=== PATIENT | male | born 1950 | race Caucasian/White ===

== ENCOUNTER 2018-01-25 08:14 | Outpatient (CLI) | payer MEDICARE, BC ==
[~2018-01-25] VITALS: Ht 175.3 cm; Wt 102.3 kg
--- NOTE | ~2018-01-25 | HEMODYNAMI ---
PATIENT:JANIE ZHOU MEDICAL RECORD: [id number] : 50 LOCATION:[facility] ADMISSION DATE: 01/25/18 Generatedon:01/25/201811:39 Patient name: JANIE ZHOU Patient #: [id number] SSN: D OB: 1950 Date of study: 01/25/2018 Page: Of Hemodynamic Procedure Report Patient Data Patient Demographics Procedure consent was obtained First Name: JANIE Gender: Male Last Name: ABELARDO : 1950 Patient #: [id number] Age: 67 year(s) Race: Unknown Additional ID: [id number] Contact details [address]: [address] [place] [address] State: [place] City: [place] Zip code: [address] Past Medical History Allergies Allergen Reaction Date Comments Reported Other allergy 01/25/2018 Plavix, Statins, Lipitor Admission Admission Data Admission Date: 01/25/2018 Admission Time: 8:14 Admit Source: Other Lab Results Lab Result Date: 01/25/2018 Lab Result Time: 9:00 Biochemistry Name Units Result Min Max BUN mg/dl 16 --(---*)-- 7 18 Creatinine mg/dl 1.3 --(---*)-- 0.6 1.3 CBC Name Units Result Min Max Hematocrit % 47.6 --(-*--)-- 42 54 Hemoglobin g/dl 17.4 --(---*)-- 13.5 17.5 Procedure Procedure Types Cath Procedure Diagnostic Procedure LHC LHC w/Coronaries w/Grafts Sedation Charges Moderate Sedation up to 15 minutes PCI Procedure Coronary Stent Coronary Stent Initial Procedure Description Procedure Date Procedure Date: 01/25/2018 Procedure Start Time: 11:18 Procedure End Time: 11:38 Procedure Staff Name Function Isiah Morton MD Performing Physician Juan Tijerina RT Monitor Manolo Allen RT Scrub Osvaldo Deleon RN Nurse Procedure Data Cath Procedure Fluoroscopy Diagnostic fluoroscopy Total fluoroscopy Time: 5 time: 5 min min Diagnostic fluoroscopy Total fluoroscopy dose: dose: 567.1 mGy 567.1 mGy Contrast Material Contrast Material Type Amount (ml) Isovue 370 129 Entry Location Entry Primary Successful Side Size Upsize Upsize Entry Closure Succes sful Closure Location (Fr) 1 (Fr) 2 (Fr) Remarks Device Remarks Femoral Right 5 Fr 6 Fr Exoseal artery Short Estimated blood loss: 10 ml Diagnostic catheters Device Type Used For End Catheter Placement MULTIPACK JL 4.0 5Fr Procedure catheter MULTIPACK Pigtail 5 Fr Procedure catheter MULTIPACK 3DRC 5Fr Procedure catheter DIAGNOSTIC AR 2 MOD 5 Fr Procedure catheter ([id number]) Procedure Complications No complications Procedure Medications Medication Administration Route Dosage Oxygen etCO2 Nasal cannula 2 l/min Heparin Flush Bag added to field 2 bags (1000units/500ml NS) 0.9% NaCl I.V. 100 ml/hr Fentanyl I.V. 50 mcg Versed I.V. 1 mg Fentanyl I.V. 50 mcg Versed I.V. 1 mg Fentanyl I.V. 50 mcg Versed I.V. 1 mg Fentanyl I.V. 50 mcg Versed I.V. 1 mg Fentanyl I.V. 50 mcg Heparin Bolus I.V. 4000 units Fentanyl I.V. 50 mcg Hemodynamics Rest HGB: 17.4 (g/dl) Heart Rate: 66 (bpm) Pressure Samples Time Site Value (mmHg) Purpose Heart Use Rate(bpm) 11:21 LV 75/8,12 Snapshot 77 11:21 LV 113/-22,13 Snapshot 77 Snapshots Pre Cath Intra NCS Post Cath Vital Signs Time Heart Resp SPO2 etCO2 NIBP (mmHg) Rhythm Pain Sedation Rate (ipm) (%) (mmHg) Status Level (bpm) 10:48:51 71 17 98 0 153/89(126) NSR 0 (11) 10(A) , No pain 10:53:11 65 17 97 32.3 133/76(112) NSR 0 (11) 10(A) , No pain 10:57:29 69 17 94 21 143/90(107) NSR 0 (11) 10(A) , No pain 11:01:53 67 17 96 27 140/81(113) NSR 0 (11) 10(A) , No pain 11:06:19 73 16 98 30.1 159/79(123) NSR 0 (11) 10(A) , No pain 11:10:50 74 17 94 24 135/67(112) NSR 0 (11) 10(A) , No pain 11:15:08 68 16 95 9 124/87(100) NSR 0 (11) 10(A) , No pain 11:19:24 63 17 95 32.3 132/81(113) NSR 0 (11) 9(A) , No pain 11:24:41 77 17 92 36.8 143/84(126) NSR 0 (11) 9(A) , No pain 11:29:02 78 16 92 23.3 163/94(126) NSR 0 (11) 9(A) , No pain 11:33:34 82 16 94 39.1 161/91(138) NSR 0 (11) 9(A) , No pain 11:36:16 83 17 94 25.5 154/95(129) NSR 0 (11) 9(A) , No pain Medications Time Medication Route Dose Verified Delivered Reason Notes Effectiveness by by 10:47:58 Oxygen etCO2 2 Isiah Osvaldo Per physician Nasal l/min Praveen Deleon RN cannula 10:48:06 Heparin Flush added 2 Isiah Osvaldo used for Bag to bags Praveen Deleon RN procedure (1000units/500ml field NS) 10:48:16 0.9% NaCl I.V. 100 Isiah Osvaldo Per physician ml/hr Praveen Deleon RN 11:12:31 Fentanyl I.V. 50 Isiah Osvaldo for sedation mcg Praveen Deleon RN 11:12:38 Versed I.V. 1 mg Isiah Osvaldo for sedation Praveen Deleon RN 11:15:34 Fentanyl I.V. 50 Isiah Osvaldo for sedation mcg Praveen Deleon RN 11:15:39 Versed I.V. 1 mg Isiah Osvaldo for sedation Prvaeen Deleon RN 11:19:16 Fentanyl I.V. 50 Isiah Osvaldo for sedation mcg Praveen Deleon RN 11:19:19 Versed I.V. 1 mg Isiah Osvaldo for sedation Praveen Deleon RN 11:22:37 Fentanyl I.V. 50 Isiah Osvaldo for sedation mcg Praveen Deleon RN 11:22:40 Versed I.V. 1 mg Isiah Osvaldo for sedation Praveen Deleon RN 11:25:42 Fentanyl I.V. 50 Isiah Riley for sedation mcg Praveen Deleon RN 11:29:03 Heparin Bolus I.V. 4000 Isiah Riley for units Praveen Deleon RN anticoagulation 11:31:01 Fentanyl I.V. 50 Isiah Riley for sedation mcg Praveen Deleon RN Procedure Log Time Note 10:18:24 Informed consent obtained and on chart 10:18:45 Admit Source: Other 10:18:46 Diagnostic Cath status Elective 10:18:48 Time tracking: Regular hours (M-F 7:00 - 5:00) 10:18:52 Plan of Care:Hemodynamics will remain stable., Cardiac rhythm will remain stable., Comfort level will be maintained., Respiratory function will remain adequate., Patient/ family verbilizes understanding of procedure., Procedure tolerated without complication., Recovers from procedure without complications.. 10:20:27 Manolo SALINAS(R) sent for patient. Start room use. 10:38:17 Patient received from Pre/Post Procedure Room to [facility] 3 Alert and oriented. Tansferred to table in Supine position. 10:38:18 Warm blankets applied, and susu hugger turned on for patient comfort. 10:38:19 Correct patient and procedure confirmed by team. 10:38:19 ECG and BP/O2 sat monitors applied to patient. 10:38:35 H&P Date Dictated: 01/25/2018 Within 30 days and on chart.. 10:47:30 Vital chart was started 10:47:58 Oxygen 2 l/min etCO2 Nasal cannula was administered by Osvaldo Deleon RN; Per physician; 10:48:06 Heparin Flush Bag (1000units/500ml NS) 2 bags added to field was administered by Osvaldo Deleon RN; used for procedure; 10:48:16 0.9% NaCl 100 ml/hr I.V. was administered by Osvaldo Deleon RN; Per physician; 10:54:36 Baseline sample Acquired. 10:54:40 Rhythm: sinus rhythm 10:55:53 Full Disclosure recording started 10:55:54 Pre-procedure instructions explained to patient. 10:55:54 Pre-op teaching completed and patient verbalized understanding. 10:55:56 Family in waiting room. 10:55:58 Patient NPO since Midnight. 10:56:14 Patient allergic to Other allergyPlavix, Statins, Lipitor 10:56:16 Is the patient allergic to Iodine/contrast media? No. 10:56:17 Is patient on blood thinner?Yes 10:56:20 ACC The patient was administered the following blood thiners within the last 24 hours: ACCEffient 10:56:23 Patient diabetic? No. 10:56:25 Previous problem with sedation/anesthesia? No ? 10:56:26 Snore? Yes 10:56:27 Sleep apnea? No 10:56:27 Deviated septum? No 10:56:28 Opens mouth fully? Yes 10:56:29 Sticks out tongue? Yes 10:56:30 Airway obstruction? No ? 10:56:31 Dentures? No ? 10:56:33 Pre procedure: right dorsailis pedis pulse 2+ Normal; easily identifiable; not easily obliterated 10:56:36 Patient pain scale 0/10 ?. 10:56:42 IV patent on arrival in left forearm with 0.9% NaCl at [facility]. 10:57:22 Lab Result : BUN 16 mg/dl 10:57:22 Lab Result : Creatinine 1.3 mg/dl 10:57:22 Lab Result : Hemoglobin 17.4 g/dl 10:57:22 Lab Result : Hematocrit 47.6 % 10:57:25 Lab results completed and on chart. 10:57:30 Right groin area was prepped with chlora-prep and draped in sterile fashion 10:57:31 Alarms reviewed by R. N. 10:57:31 Sharps counted by scrub and verified by R.N. 10:57:34 Use device set Femoral Dx 10:57:35 ACIST Syringe (24374) opened to sterile field. 10:57:35 Bag Decanter (2002) opened to sterile field. 10:57:36 Medline Cath Pack ([id number]) opened to sterile field. 10:57:37 ACIST Hand Control (48695) opened to sterile field. 10:57:38 ACIST Manifold (17654) opened to sterile field. 10:57:39 Tegaderm 4 x 4 (1626W) opened to sterile field. 10:57:40 SHEATH Prelude 5Fr 0.035 (OFX-2N-52-035) opened to sterile field. 10:57:42 DIAGNOSTIC WIRE .035 260cm J wire (736342) opened to sterile field. 10:57:42 DIAGNOSTIC Multipack 5Fr catheter set (BF7019) opened to sterile field. 11:12:14 Zero performed for pressure channel P1 11:12:23 Physician arrived 11::24 --------ALL STOP TIME OUT------ ::24 Final Timeout: patient, procedure, and site verified with staff and physician. All members of the team are in agreement. 11:12:26 Right groin site verified by team. 11:12:28 Physical assessment completed. ASA score P 2 - A patient with mild systemic disease as per Isiah Morton MD. 11:12:31 Fentanyl 50 mcg I.V. was administered by Osvaldo Deleon RN; for sedation; 11:12:31 Sedation plan: IV Moderate Sedation Medication:Versed, Fentanyl 11:12:38 Versed 1 mg I.V. was administered by Osvaldo Deleon RN; for sedation; 11:15:34 Fentanyl 50 mcg I.V. was administered by Osvaldo Deleon RN; for sedation; 11:15:39 Versed 1 mg I.V. was administered by Osvaldo Deleon RN; for sedation; 11:18:25 Procedure started. 11:18:29 Local anesthetic to right femoral artery with Lidocaine 2% by Isiah Morton MD.INITIAL ACCESS ONLY 11:18:36 A 5 Fr sheath was inserted into the Right Femoral artery 11:19:16 Fentanyl 50 mcg I.V. was administered by Osvaldo Deleon RN; for sedation; 11:19:19 Versed 1 mg I.V. was administered by Osvaldo Deleon RN; for sedation; 11:19:44 A MULTIPACK JL 4.0 5Fr catheter was advanced over the wire and used for Procedure. 11:19:53 LCA angiography performed. 11:21:09 SHEATH Prelude 6Fr 0.035 (NPM-8Q-60-035) opened to sterile field. 11:21:09 CHOICE PT Extra Support 182cm wire ([id number]) opened to sterile field. 11:21:10 INFLATOR Merit BasixCompak (OS8846) opened to sterile field. 11:21:12 Catheter exchanged over wire. 11:21:15 A MULTIPACK Pigtail 5 Fr catheter was advanced over the wire and used for Procedure. 11:22:02 LV gram done using CEBALLOS 11::05 Injector settings: Ml/sec: 10, Volume: 20, 11:22:06 LV hemodynamics recorded. 11:22:11 EF : 50 % 11:22:12 Catheter exchanged over wire. 11:22:17 A MULTIPACK 3DRC 5Fr catheter was advanced over the wire and used for Procedure. 11::37 Fentanyl 50 mcg I.V. was administered by Osvaldo Deleon RN; for sedation; 11::40 Versed 1 mg I.V. was administered by Osvaldo Deleon RN; for sedation; 11::01 HIDALGO to Diag angiography performed. 11:23:24 RCA angiography performed. 11::42 SVG to LAD angiography performed. 11::57 Catheter exchanged over wire. 11:24:02 A DIAGNOSTIC AR 2 MOD 5 Fr catheter ([id number]) was advanced over the wire and used for Procedure. 11:25:06 SVG to RCA angiography performed. 11::42 Fentanyl 50 mcg I.V. was administered by Osvaldo Deleon RN; for sedation; 11::13 Catheter removed. 11:26:21 Sheath upsized to a 6 Fr Short. 11:26:49 GUIDE 6FR XB 4.0 SH catheter ([id number]) opened to sterile field. 11:26:56 6 Fr xb 4 sh guide catheter was inserted over the wire 11::03 Heparin Bolus 4000 units I.V. was administered by Osvaldo Deleon RN; for anticoagulation; 11::31 Guide Catheter removed. unable to cannulate vessel. 11:29:36 GUIDE 6FR XB 3.5 SH catheter ([id number]) opened to sterile field. 11:29:51 choice pt es wire advanced. 11::53 Wire advanced across lesion. 11:: Fentanyl 50 mcg I.V. was administered by Osvaldo Deleon RN; for sedation; 11:31:03 Place stent Inflation Number: 1 A MARISEL RX 3.0 x 12 stent ([id number]) was prepped and advanced across the Dist CX. The stent was deployed at 11 NADIA for 0:10 (min:sec). 11:32:04 Stent catheter was removed intact over wire. 11:32:33 Place stent Inflation Number: 1 A MARISEL RX 3.0 x 18 stent ([id number]) was prepped and advanced across the Mid CX. The stent was deployed at 15 NADIA for 0:10 (min:sec). 11:32:46 EXOSEAL 6Fr (EX600) opened to sterile field. 11:33:15 Stent catheter was removed intact over wire. 11:33:15 Wire removed. 11:33:16 Guide catheter removed. 11:33:22 Sheath removed intact; hemostasis achieved with Exoseal to the Right Femoral artery. 11:33:23 Procedure ended.(Physican Out) 11:36:55 Fluoroscopy time 05.00 minutes. 11:37:08 Flurop Dose total: 567.1 11:37:08 Fluoroscopy dose: 567.1 mGy 11:37:14 Contrast amount:Isovue 370 129ml. 11:37:16 Sharps counted by scrub and verified by R.N. 11:37:20 Insertion/operative site no bleeding no hematoma. 11:37:22 Post-op/insertion site Right Femoral artery dressed using a 4 x 4 and Tegaderm. 11:37:25 Post right femoral artery:stable, soft, clean and dry 11:37:26 Post Procedure Pulses reassessed and unchanged 11:37:29 Post-procedure physical assessment completed. ASA score P 2 - A patient with mild systemic disease as per Isiah Morton MD. 11:37:37 Post procedure rhythm: unchanged. 11:37:39 Estimated blood loss: 10 ml 11:37:40 Post procedure instruction explained to patient.Patient verbalizes understanding. 11:37:41 Patient needs reinforcement of post procedure teaching. 11:37:49 Procedure type changed to Cath procedure, Diagnostic procedure, LHC, LHC w/Coronaries w/Grafts, Sedation Charges, Moderate Sedation up to 15 minutes, PCI procedure, Coronary Stent, Coronary Stent Initial 11:38:31 Procedure and supply charges have been captured, reviewed, submitted and are correct. 11:38:33 Procedure Complication : No complications 11:38:35 Vital chart was stopped 11:38:35 See physician's report for complete and final results. 11:38:36 Report given to Pre/Post Procedure Room. 11:38:38 Patient transfered to Pre/Post Procedure Room with Stretcher. 11:38:40 Procedure ended. 11:38:40 Full Disclosure recording stopped 11:38:45 End room use (Document Last) Intervention Summary Intervention Notes Time ActionType Lesion and Equipment Used Action# Pressure Duration Attributes 11:31:03 Place stent Dist CX MARISEL RX 3.0 x 1 11 00:10 12 stent ([id number]) 11:32:33 Place stent Mid CX MARISEL RX 3.0 x 1 15 00:10 18 stent ([id number]) Device Usage Item Name Manufacture Quantity Catalog Number Hospital Part Current Minimal Lot# / Charge Number Stock Stock Serial# Code ACIST Syringe Acist 1 38066 097564 692587 310668 20 (66554) Medical Systems O2 [place] Bag Decanter Microtek 1 2001S 246932 93586 185477 5 () Medical Inc. Medline Cath Cardinal 1 [id number] 154650 74561 191159 5 Pack Health ([id number]) ACIST Hand Acist 1 63499 784922 543564 762597 5 Control (37944) Medical Systems Inc ACIST Manifold Acist 1 62446 969036 886222 895959 5 (57521) Medical Systems Inc Tegaderm 4 x 4 3M 1 1626W 714356 491285 099366 5 (1626W) SHEATH Prelude Merit 1 GXT-1F-26-035 713470 340627 674354 5 5Fr 0.035 Medical (AWP-0N-39-035) DIAGNOSTIC WIRE St Sg 1 064983 182771 295107 183015 30 .035 260cm J wire (036773) DIAGNOSTIC Cardinal 1 MY0942 298073 65490 137208 30 Multipack 5Fr Health catheter set ([id number]) MULTIPACK JL Cardinal 1 035254 5 4.0 5Fr Health catheter SHEATH Prelude Merit 1 KNM-1R-98-35 738745 3698930 476792 5 6Fr 0.035 Medical (LHZ-8Q-48-035) CHOICE PT Extra Kell 1 [id number] 156244 306440 075180 5 Support 182cm Scientific wire ([id number]) INFLATOR Merit Merit 1 ZC3324 626103 255354 976361 15 [employer]ous[employer] - It's what's in store Medical (OS0841) MULTIPACK Cardinal 1 624999 5 Pigtail 5 Fr Health catheter MULTIPACK 3DRC Cardinal 1 105711 5 5Fr catheter Health DIAGNOSTIC AR 2 Cardinal 1 [id number] 940098 505931 672490 20 MOD 5 Fr Health catheter ([id number]) GUIDE 6FR XB Cardinal 1 05238984 733077 953939 078647 2 4.0 catheter Health (54976119) GUIDE 6FR XB Cardinal 1 03340934 675258 755225 230108 2 3.5 catheter Health (36117704) MARISEL RX 3.0 x Medtronic 1 [id number] 302150 0465232 636745 5 [id number] 12 stent ([id number]) MARISEL RX 3.0 x Medtronic 1 [id number] 153489 4781397 238623 5 [id number] 18 stent ([id number]) EXOSEAL 6Fr Cardinal 1 EX600 648024 906769 015734 10 (EX600) Health Signature Audit Gravity Stage Time Signature Unsigned Intra-Procedure 01/25/2018 Juan Tijerina 11:39:29 AM RT(R) Signatures Monitor : Juan Tijerina RT Signature : Date : Time : [address] [place] [address]
--- NOTE | ~2018-01-25 | OP ---
PATIENT NAME: JANIE ZHOU MEDICAL RECORD: [id number] :50 LOCATION:D.CAT ADMISSION DATE: SURGEON: SANDRA VELEZ MD DATE OF OPERATION: 01/25/2018 PROCEDURES: 1. PTCA stent left circumflex. 2. Left heart catheterization. 3. Selective coronary angiography. 4. Vein graft angiography. 5. HIDALGO angiography. 6. Left ventriculogram. INDICATION: Angina and coronary artery disease. PROCEDURE IN DETAIL: After informed consent was obtained and after detailed description of the risks, benefits as well as alternative therapies, the patient elected to proceed with angiogram and angioplasty. The right femoral area was prepped and draped in normal sterile fashion. Right femoral artery was cannulated via modified Seldinger technique with placement of 6-Kiswahili sheath. All catheters exchanged through this sheath. FINDINGS: Left ventriculogram was performed in a standard 30-degree CEBALLOS view, reveals good cardiac wall motion throughout all segments. Overall ejection fraction estimated 60%. SELECTIVE CORONARY ANGIOGRAPHY: 1. Left main is with no significant angiographic disease. 2. Left anterior descending has a 90% stenosis proximally. 3. HIDALGO to the LAD is widely patent. 4. Vein graft to the LAD diagonal is widely patent. 5. Left circumflex has 2 areas of 70% to 80% stenosis in the mid vessel. 6. Vein graft to circumflex is closed. 7. The right coronary artery is totally occluded in the mid vessel. 8. Vein graft to the right coronary artery is patent. The distal right coronary artery is widely patent. PTCA STENT OF LEFT CIRCUMFLEX: The stents used were 3.0 x 12 and 3.0 x 18, both Jan stents. Result was 0% residual stenosis. OVERALL IMPRESSION: Successful percutaneous transluminal coronary angioplasty stent of the left circumflex going from 80% initial stenosis times 2 to 0% residual. TRANSINT:[id number] Voice Confirmation ID: [id number] DOCUMENT ID: [id number] SANDRA VELEZ MD at 1728 CC: [id number] DICTATION DATE: 01/25/18 1138 RETAIL TEAM MEMBER: 01/25/18 1157 DEP CLI 01/25/18 [place] [address]
[~2018-01-25 08:14] MED LIST: ASPIRIN 81 MG E81 MG PO; EFFIENT10 MG PO; NORCO 5/325 TAB1 TA1 PO; TOPROL XL25 MG PO; VIBRAMYCIN 100100 MG PO; ZETIA10 MG PO
[2018-01-25] MEDS ORDERED: RELAFEN500 MG PO (08:57)
[2018-01-25] MEDS ORDERED: ZANAFLEX2 M1 PO (08:58)
[2018-01-25 09:04] VITALS: BP 145/82; Ht 175.3 cm; Wt 102.3 kg
[2018-01-25 09:16] LABS: BASOPHILS 0 % (0-2); EOSINOPHILS 1.5 % (0-7); HEMATOCRIT 47.6 % (42.0-54.0); HEMOGLOBIN 17.4 g/dL (13.5-17.5); IMMATURE GRANULOCYTES 0.4 % (0-5); LYMPHOCYTES 21.3 % (15-50); MCH 33.1 pg (26.0-34.0); MCHC 36.6 g/dL (31.0-37.0); MCV 90.7 fL (80.0-100.0); MEAN PLATELET VOLUME 9.4 fL (7.4-10.4); MONOCYTES 11.5 % (2-11); NEUTROPHILS 65.3 % (40-80); RBC 5.25 10x6/uL (4.20-6.10); RDW 12.8 % (11.5-14.5); WBC 6.8 10x3/uL (4.8-10.8)
[2018-01-25 09:30] LABS: PLATELET COUNT 260 10x3/uL (130-400)
[2018-01-25 09:35] LABS: ANION GAP 6.7 mmol/L (8-16); CALCIUM 8.5 mg/dL (8.5-10.1); CARBON DIOXIDE 30.4 mmol/L (21.0-32.0); CREATININE - SERUM 1.3 mg/dL (0.6-1.3); POTASSIUM - SERUM 4.1 mmol/L (3.5-5.1)
== END 2018-01-25 15:44 | disposition home or self-care (01) ==
LOC: D.CATH 08:14
PROVIDERS: Internal Medicine Interventional Cardiology
DX: I25.119 Atherosclerotic heart disease of native coronary artery with unspecified angina pectoris (principal); I25.719 Atherosclerosis of autologous vein coronary artery bypass graft(s) with unspecified angina pectoris; Z01.812 Encounter for preprocedural laboratory examination
CPT/HCPCS: 93459; C9600

== ENCOUNTER 2018-07-25 08:28 | Outpatient (CLI) | payer MEDICARE, BC ==
[~2018-07-25] VITALS: Ht 175.3 cm; Wt 102.3 kg
--- NOTE | ~2018-07-25 | HEMODYNAMI ---
PATIENT:JANIE ZHOU MEDICAL RECORD: [id number] : 50 LOCATION:[facility] ADMISSION DATE: 07/25/18 Generatedon:07/25/201812:26 Patient name: JANIE ZHOU Patient #: [id number] SSN: D OB: 1950 Date of study: 07/25/2018 Page: Of Hemodynamic Procedure Report Patient Data Patient Demographics Procedure consent was obtained First Name: JANIE Gender: Male Last Name: ABELARDO : 1950 Patient #: [id number] Age: 67 year(s) Race: Unknown Additional ID: [id number] Contact details Address: [address] [place] [address] State: [place] City: [place] Zip code: [address] Past Medical History Allergies Allergen Reaction Date Comments Reported Other allergy 01/25/2018 Plavix, Statins, Lipitor Other allergy 07/25/2018 plavix, Lipitor, Plavix Admission Admission Data Admission Date: 07/25/2018 Admission Time: 8:28 Height (in.): 69 BSA: 2.18 (m2) Height (cm.): 175.26 BMI: 33.37 (kg/m2) Weight (lbs.): 226 Weight (kg.): 102.51 Lab Results Lab Result Date: 07/25/2018 Lab Result Time: 0:00 Biochemistry Name Units Result Min Max BUN mg/dl 19 --(----)*- 7 18 Creatinine mg/dl 1.2 --(---*)-- 0.6 1.3 CBC Name Units Result Min Max Hemoglobin g/dl 15.8 --(--*-)-- 13.5 17.5 Procedure Procedure Types Cath Procedure Diagnostic Procedure [facility] w/Coronaries w/Grafts Sedation Charges Moderate Sedation up to 15 minutes PCI Procedure Coronary Stent Coronary Stent Initial Procedure Description Procedure Date Procedure Date: 07/25/2018 Procedure Start Time: 12:12 Procedure End Time: 12:24 Procedure Staff Name Function Isiah Morton MD Performing Physician Abelardo Guerra RT Monitor Moy Mendieta RN Nurse Guera Iqbal RT Scrub Tammy Kunz RT Scrub Procedure Data Cath Procedure Fluoroscopy Diagnostic fluoroscopy Total fluoroscopy Time: 3.2 time: 3.2 min min Diagnostic fluoroscopy Total fluoroscopy dose: 667 dose: 667 mGy mGy Contrast Material Contrast Material Type Amount (ml) Isovue 300 84 Entry Location Entry Primary Successful Side Size Upsize Upsize Entry Closure Succes sful Closure Location (Fr) 1 (Fr) 2 (Fr) Remarks Device Remarks Femoral Right 5 Fr 6 Fr Exoseal artery Short Estimated blood loss: 10 ml Diagnostic catheters Device Type Used For End Catheter Placement MULTIPACK Pigtail 5 Fr Procedure catheter MULTIPACK 3DRC 5Fr Procedure catheter MULTIPACK JL 4.0 5Fr Procedure catheter DIAGNOSTIC AR MOD 5Fr Procedure Catheter ([id number]) Procedure Complications No complications Procedure Medications Medication Administration Route Dosage 0.9% NaCl I.V. 100 ml/hr Oxygen etCO2 Nasal cannula 2 l/min Heparin Flush Bag added to field 2 bags (1000units/500ml NS) Lidocaine 2% added to field 20 Versed I.V. 2 mg Fentanyl I.V. 100 mcg Versed I.V. 2 mg Heparin Bolus I.V. 4000 units Hemodynamics Rest BSA: 2.18 (m2) HGB: 15.8 (g/dl) O2 Consumption: Estimated: 254.44 (ml/min) O2 Co nsumption indexed: Estimated:116.72 (ml/min/m) Heart Rate: 71 (bpm) Pressure Samples Time Site Value (mmHg) Purpose Heart Use Rate(bpm) 12:13 LV 112/8,11 Snapshot 69 12:14 AO 134/77(98) Pullback 69 12:14 LV 121/6,7 Pullback 69 Gradients Valve Time Site 1 Site 2 Mean SEP/DFP Peak To Heart Use (mmHg) (sec/min) Peak Rate (mmHg) (bpm) Aortic 12:14 LV AO 0 5 0 69 121/6,7 134/77(98) Calculations Valve P-P Mean Valve Index Valve Source Name Gradient Area Flow (cm2) Aortic 0 0 0 0 Snapshots Pre Cath Intra NCS Post Cath Vital Signs Time Heart Resp SPO2 etCO2 NIBP (mmHg) Rhythm Pain Sedation Rate (ipm) (%) (mmHg) Status Level (bpm) 11:53:04 72 17 100 146/81(113) NSR 0 (11) 10(A) , No pain 11:57:18 67 14 100 34.7 137/82(105) NSR 0 (11) 10(A) , No pain 12:01:28 70 15 100 29.5 138/81(96) NSR 0 (11) 10(A) , No pain 12:05:42 63 13 100 39.2 132/73(86) NSR 0 (11) 10(A) , No pain 12:10:43 64 14 100 34.7 134/82(122) NSR 0 (11) 10(A) , No pain 12:14:53 66 14 98 36.3 140/80(107) NSR 0 (11) 10(A) , No pain 12:20:06 68 14 97 37.7 132/79(107) NSR 0 (11) 10(A) , No pain 12:24:18 70 15 94 34 121/73(88) NSR 0 (11) 10(A) , No pain Medications Time Medication Route Dose Verified Delivered Reason Notes Effectiveness by by 11:54:45 0.9% NaCl I.V. 100 Moy Per physician ml/hr Anam PHELAN 11:54:57 Oxygen etCO2 2 Moy Moy for low 02 sats Nasal l/min Anam Mendieta cannula RN RN 11:55:07 Heparin Flush added 2 Moy Moy used for Bag to bags Anam Mendieta procedure (1000units/500ml field PHELAN RN NS) 11:55:16 Lidocaine 2% added 20ml Moy Moy for local to vial Anam Mendieta anesthetic field PHELAN RN 12:08:08 Versed I.V. 2 mg Moy Moy for sedation Anam Mendieta RN RN 12:08:18 Fentanyl I.V. 100 Moy Moy for sedation mcg Anam Mendieta RN RN 12:09:58 Versed I.V. 2 mg Moy Moy for sedation Anam Mendieta RN RN 12:20:01 Heparin Bolus I.V. 4000 Moy Moy for units Anam Mendieta anticoagulation RN customer insight analyst Log Time Note 11:26:57 Patient Height : 69 inches 11:27:06 Patient Weight : 226 lbs 11:28:50 Lab Result : BUN 19 mg/dl 11:28:50 Lab Result : Hemoglobin 15.8 g/dl 11::50 Lab Result : Creatinine 1.2 mg/dl 11:30:07 Diagnostic Cath status Elective 11:30:43 Abelardo SALINAS(R) sent for patient. Start room use. 11:30:45 Time tracking: Regular hours (M-F 7:00 - 5:00) 11:30:50 Plan of Care:Hemodynamics will remain stable., Cardiac rhythm will remain stable., Comfort level will be maintained., Respiratory function will remain adequate., Patient/ family verbilizes understanding of procedure., Procedure tolerated without complication., Recovers from procedure without complications.. 11:46:41 Patient received from Pre/Post Procedure Room to CCL 2 Alert and oriented. Tansferred to table in Supine position. 11:46:42 Warm blankets applied, and susu hugger turned on for patient comfort. 11:46:43 Correct patient and procedure confirmed by team. 11:46:44 Signed procedure consent form obtained from patient. 11:46:45 ECG and BP/O2 sat monitors applied to patient. 11:51:58 Vital chart was started 11:52:01 Baseline sample Acquired. 11:52:09 Rhythm: sinus rhythm 11:52:11 Full Disclosure recording started 11:54:16 H&P Date Dictated: 07/22/2018 Within 30 days and on chart., H&P Addendum completed by physician on day of procedure. (MUST COMPLETE FOR ALL OUTPATIENTS). 11:54:36 Family in waiting room. 11:54:45 0.9% NaCl 100 ml/hr I.V. was administered by Moy Mendieta RN; Per physician; 11:54:57 Oxygen 2 l/min etCO2 Nasal cannula was administered by Moy Mendieat RN; for low 02 sats; 11:54:57 Patient NPO since Midnight. 11:55:07 Heparin Flush Bag (1000units/500ml NS) 2 bags added to field was administered by Moy Mendieta RN; used for procedure; 11:55:16 Lidocaine 2% 20ml vial added to field was administered by Moy Mendieta RN; for local anesthetic; 11:55:25 Patient allergic to Other allergyplavix, Lipitor, Plavix 11:55:30 Is the patient allergic to Iodine/contrast media? No. 11:55:32 Was the patient premedicated? Yes 11:55:34 Is patient on blood thinner?Yes 11:55:38 ACC The patient was administered the following blood thiners within the last 24 hours: ACCEffient 11:55:40 Patient diabetic? No. 11:55:44 Snore? Yes 11:55:45 Sleep apnea? No 11:55:52 Dentures? No ? 11:55:57 Patient pain scale 0/10 ?. 11:56:06 IV patent on arrival in left forearm with 0.9% NaCl at [facility]. 11:56:10 Lab results completed and on chart. 11:56:13 Right groin area was prepped with chlora-prep and draped in sterile fashion 11:56:14 Alarms reviewed by R. N. 11:56:15 Sharps counted by scrub and verified by R.N. 11:56:20 Pre procedure: right dorsailis pedis pulse 1+ Palpable, but thready & weak; easily obliterated 11:58:34 Zero performed for pressure channel P1 11:58:42 Zero performed for pressure channel P1 11:58:45 Zero performed for pressure channel P1 11:59:00 Physician paged 11:59:05 Use device set Femoral Dx 11:59:07 ACIST Syringe (60750) opened to sterile field. 11:59:07 Bag Decanter (2002S) opened to sterile field. 11:59:08 Medline Cath Pack ([id number]) opened to sterile field. 11:59:08 DIAGNOSTIC WIRE .035 260cm J wire (850814) opened to sterile field. 11:59:09 ACIST Hand Control (53131) opened to sterile field. 11:59:10 ACIST Manifold (06304) opened to sterile field. 11:59:11 DIAGNOSTIC Multipack 5Fr catheter set (WM8876) opened to sterile field. 11:59:11 Tegaderm 4 x 4 (1626W) opened to sterile field. 11:59:15 SHEATH 5FR [place] (NXU022) opened to sterile field. 12:00:07 Zero performed for pressure channel P1 12:07:14 Physician arrived 12:07:15 --------ALL STOP TIME OUT------ 12:07:15 Final Timeout: patient, procedure, and site verified with staff and physician. All members of the team are in agreement. 12:07:19 Right groin site verified by team. 12:07:25 Fire Safety Assessment: A--An alcohol-based skin anteseptic being used preoperatively., C--Open oxygen or nitrous oxide is being used., D--An ESU, laser, or fiber-optic light is being used. 12:07:30 Physical assessment completed. ASA score P 2 - A patient with mild systemic disease as per Isiah Morton MD. 12:07:35 Sedation plan: IV Moderate Sedation Medication:Versed, Fentanyl 12:08:08 Versed 2 mg I.V. was administered by Moy Mendieta RN; for sedation; 12:08:18 Fentanyl 100 mcg I.V. was administered by Moy Mendieta RN; for sedation; 12:09:58 Versed 2 mg I.V. was administered by Moy Mendieta RN; for sedation; 12:12:35 Procedure started. 12:12:43 Local anesthetic to right femoral artery with Lidocaine 2% by Isiah Morton MD.INITIAL ACCESS ONLY 12:12:53 A 5 Fr sheath was inserted into the Right Femoral artery 12:12:59 J wire advanced. 12:13:15 A MULTIPACK Pigtail 5 Fr catheter was advanced over the wire and used for Procedure. 12:14:01 EF : 60 % 12:14:06 LV gram done using CEBALLOS 12:14:10 Catheter removed. 12:14:41 A MULTIPACK 3DRC 5Fr catheter was advanced over the wire and used for Procedure. 12:15:02 HIDALGO to LAD angiography performed. 12:16:27 A MULTIPACK JL 4.0 5Fr catheter was advanced over the wire and used for Procedure. 12:16:29 LCA angiography performed. 12:16:31 Catheter removed. 12:16:57 A DIAGNOSTIC AR MOD 5Fr Catheter ([id number]) was advanced over the wire and used for Procedure. 12:17:01 SVG angiography performed. 12:17:05 SVG to Circ angiography performed. 12:17:17 SVG to RCA angiography performed. 12:17:24 Catheter removed. 12:18:36 SHEATH 6FR [place] (DKQ044) opened to sterile field. 12:18:37 CHOICE PT Extra Support 182cm wire ([id number]) opened to sterile field. 12:18:38 GUIDE 6FR XBLAD 3.5 SH catheter ([id number]) opened to sterile field. 12:18:39 INFLATOR Merit Dolly (UW3092) opened to sterile field. 12:18:43 Proceeding to intervention. 12:18:52 Sheath upsized to a 6 Fr Short. 12:19:09 6 Fr XBLAD 3.5SH guide catheter was inserted over the wire 12:19:20 choice pt ex wire advanced. 12:19:36 Wire advanced across lesion. 12:20:01 Heparin Bolus 4000 units I.V. was administered by Moy Mendieta RN; for anticoagulation; 12::43 Place stent Inflation Number: 1 A MARISEL RX 3.0 x 15 stent ([id number]) was prepped and advanced across the LMCA. The stent was deployed at 13 NADIA for 0:07 (min:sec). 12:21:18 EXOSEAL 6Fr (EX600) opened to sterile field. 12:21:36 Wire removed. 12:21:37 Guide catheter removed. 12:21:48 Sheath removed intact; hemostasis achieved with Exoseal to the Right Femoral artery. 12:22:04 Procedure ended.(Physican Out) 12:22:24 Fluoroscopy time 03.20 minutes. 12:22:30 Flurop Dose total: 667 12:22:30 Fluoroscopy dose: 667 mGy 12:22:33 Contrast amount:Isovue 300 84ml. 12:22:43 Insertion/operative site no bleeding no hematoma. 12:22:48 Post right femoral artery:stable 12:22:50 Post Procedure Pulses reassessed and unchanged 12:23:03 Post-procedure physical assessment completed. ASA score P 2 - A patient with mild systemic disease as per Isiah Morton MD. 12:23:08 Post procedure rhythm: unchanged. 12:23:13 Estimated blood loss: 10 ml 12:23:15 Post procedure instruction explained to patient.Patient verbalizes understanding. 12:23:16 Patient needs reinforcement of post procedure teaching. 12:23:38 Procedure type changed to Cath procedure, Diagnostic procedure, LHC, LHC w/Coronaries w/Grafts, Sedation Charges, Moderate Sedation up to 15 minutes, PCI procedure, Coronary Stent, Coronary Stent Initial 12:23:40 Procedure and supply charges have been captured, reviewed, submitted and are correct. 12:24:15 Procedure Complication : No complications 12:24:18 Vital chart was stopped 12:24:19 See physician's report for complete and final results. 12:24:21 Report given to Pre/Post Procedure Room. 12:24:25 Patient transfered to Pre/Post Procedure Room with Stretcher. 12:24:27 Procedure ended. 12:24:27 Full Disclosure recording stopped 12:24:32 End room use (Document Last) 12::32 End room use (Document Last) 12:25:29 Post procedure: right dorsailis pedis pulse 1+ Palpable, but thready & weak; easily obliterated. Intervention Summary Intervention Notes Time ActionType Lesion and Equipment Used Action# Pressure Duration Attributes 12:20:43 Place stent LMCA MARISEL RX 3.0 x 1 13 00:07 15 stent ([id number]) Device Usage Item Name Manufacture Quantity Catalog Number Hospital Part Current M inimal Lot# / Charge Number Stock Stock Serial# Code ACIST Syringe Acist 1 42213 470435 181227 838205 2 0 (59440) Medical Systems Inc Bag Decanter Microtek 1 2001S 180502 60961 037504 5 (2001S) Medical Inc. Medline Cath Medline 1 [id number] 076269 99354 284948 5 Pack ([id number]) DIAGNOSTIC St Sg 1 338920 620960 209604 118349 3 0 WIRE .035 260cm J wire (448818) ACIST Hand Acist 1 87374 577848 779310 134281 5 Control Medical (90544) Systems Inc ACIST Manifold Acist 1 97016 372760 053579 647720 5 (26070) Medical Systems Inc DIAGNOSTIC Cardinal 1 XW9359 450667 29298 852766 3 0 Multipack 5Fr Health catheter set (ZQ8657) Tegaderm 4 x 4 3M 1 1626W 007385 832487 832734 5 (1626W) SHEATH 5FR Terumo 1 IFY753 660970 129600 322810 5 [place] (WQC622) MULTIPACK Cardinal 1 014236 5 Pigtail 5 Fr Health catheter MULTIPACK 3DRC Cardinal 1 553276 5 5Fr catheter Health MULTIPACK JL Cardinal 1 529275 5 4.0 5Fr Health catheter DIAGNOSTIC AR Cardinal 1 [id number] 884352 179906 150743 1 5 MOD 5Fr Health Catheter (455732N) SHEATH 6FR Terumo 1 UHR865 428640 008498 475018 4 0 [place] (OGX810) CHOICE PT Riddle 1 [id number] 208960 187490 386949 5 Extra Support Scientific 182cm wire ([id number]) GUIDE 6FR Cardinal 1 [id number] 934982 275895 566336 3 XBLAD 3.5 SH Health catheter (33369630) INFLATOR Merit Merit 1 NC1432 160247 430124 006128 [address] [facility] (FF2688) MARISEL RX 3.0 x Medtronic 1 [id number] 293725 9873791 523080 5 [id number] 15 stent ([id number]) EXOSEAL 6Fr Cardinal 1 EX600 862351 466603 277940 1 0 (EX600) Health Signature Audit [place] Stage Time Signature Unsigned Intra-Procedure 07/25/2018 Abelardo Guerra 12:25:55 PM RT(R) Signatures Monitor : Abelardo Guerra Signature : RT Date : Time : [place] [id number] [facility] [place] [address]
[~2018-07-25 08:28] MED LIST changes: +RELAFEN500 MG PO; +ZANAFLEX2 M1 PO
[2018-07-25] MEDS ORDERED: PREDNISONE5 MG PO (08:47)
[2018-07-25] MEDS ORDERED: PREVACID15 MG PO (08:48)
[2018-07-25] MEDS ORDERED: MAGNESIUM OXID500 MG PO (08:49)
[2018-07-25 08:59] VITALS: BP 126/84; Ht 175.3 cm; Wt 102.3 kg
[2018-07-25 09:09] LABS: BASOPHILS 0.1 % (0-2); EOSINOPHILS 1.5 % (0-7); HEMOGLOBIN 15.8 g/dL (13.5-17.5); IMMATURE GRANULOCYTES 0.3 % (0-5); LYMPHOCYTES 21.7 % (15-50); MCH 29.5 pg (26.0-34.0); MCHC 34.3 g/dL (31.0-37.0); MEAN PLATELET VOLUME 9.4 fL (7.4-10.4); MONOCYTES 9.3 % (2-11); NEUTROPHILS 67.1 % (40-80); PLATELET COUNT 274 10x3/uL (130-400); RBC 5.35 10x6/uL (4.20-6.10); RDW 14.5 % (11.5-14.5); WBC 7.5 10x3/uL (4.8-10.8)
[2018-07-25 09:22] LABS: ANION GAP 14.6 mmol/L (8-16); CALCIUM 8.6 mg/dL (8.5-10.1); CARBON DIOXIDE 26.5 mmol/L (21.0-32.0); CREATININE - SERUM 1.2 mg/dL (0.6-1.3); POTASSIUM - SERUM 4.1 mmol/L (3.5-5.1)
--- NOTE | 2018-07-25 12:40 | NUR ---
PT RECEIVED VIA STRECTHER FROM PHYSICIAN/OPHTHALMOLOGIST FOR RECOVERY. PT AWAKE, DENIES PAIN OR NAUSEA. HR NSR RATE 69, BP 129/79, O2 SAT 93 ON ROOM AIR, O2 PLACED AT 2L/NC. 6FR EXOCELE TO R GROIN, DRESSING CDI NO BLEEDING OR HEMATOMA NOTED. PEDAL PULSES PALPABLE, LEG WARM AND PINK. PT INSTRUCTED TO KEEP HEAD FLAT AND R LEG STILL AND STRAIGHT, HE VERBALIZED UNDERSTANDING. CALL LIGHT IN REACH, AT BEDSIDE.
--- NOTE | 2018-07-25 12:58 | NUR ---
PT RESTING QUIETLY WATCHING TV. DENIES ANY PAIN OR NEEDS. R GROIN DRESSING CDI NO BLEEDING OR SWELLING NOTED. PEDAL PULSES PALPABLE. CALL LIGHT IN REACH, AT BEDSIDE.
--- NOTE | 2018-07-25 13:30 | NUR ---
PT RESTING COMFORTABLY, R GROIN DRESSING CDI NO BLEEDING OR SWELLING NOTED. CALL LIGHT IN REACH, PT DENIES PAIN OR NEEDS AT THIS TIME.
--- NOTE | 2018-07-25 14:00 | NUR ---
PT RESTING COMFORTABLY, DENIES PAIN OR NEEDS. VSS, R GROIN REMAINS SOFT, NO BLEEDING OR HEMATOMA NOTED. PEDAL PULSES PALPABLE. CALL LIGHT IN REACH, REMAINS AT BEDSIDE.
--- NOTE | 2018-07-25 14:35 | NUR ---
PT W/O COMPLAINTS, R GROIN SOFT NO BLEEDING OR SWELLING NOTED. VSS, CALL LIGHT IN REACH, AT BEDSIDE.
--- NOTE | 2018-07-25 15:00 | NUR ---
PT GIVEN URINAL PER REQUEST, VOIDED SMALL AMT OF CLEAR YELLOW URINE. R GROIN REMAINS SOFT, DRESSING CDI NO BLEEDING OR SWELLING NOTED. DENIES PAIN OR OTHER NEEDS, CALL LIGHT IN REACH
--- NOTE | 2018-07-25 15:37 | NUR ---
R GROIN DRESSING REMAINS CDI, AREA SOFT W NO BLEEDING OR SWELLING NOTED. HOB ELEVATED, SANDWICH SERVED. PT DENIES PAIN OR NEEDS, CALL LIGHT IN REACH, REMAINS AT BEDSIDE.
--- NOTE | 2018-07-25 16:15 | NUR ---
DISCUSSED DISCHARGE INSTRUCTIONS WITH PT AND PT'S FAMILY. THEY VOICED UNDERSTANDING. RIGHT GROIN DRESSING C/D/I. NO S/S OF HEMATOMA NOTED. LEFT FA PIV D/C'D WITH CATH TIP INTACT. PT INSTRUCTED TO GET DRESSED.
--- NOTE | 2018-07-25 16:30 | NUR ---
PT AMBULATED TO RESTROOM. VOIDED WITHOUT DIFFICULTY. PT TAKEN OUT TO VEHICLE BY WHEELCHAIR. NO S/S OF DISTRESS NOTED. ALL DISCHARGE PAPEROWRK AND BELONGINGS IN HAND.
--- NOTE | 2018-07-26 15:29 | OP ---
PATIENT NAME: JANIE ZHOU MEDICAL RECORD: [id number] :50 LOCATION:[facility] ADMISSION DATE: SURGEON: SANDRA VELEZ MD DATE OF OPERATION: 07/25/2018 PROCEDURES: 1. PTCA stent of the left main. 2. Left heart catheterization. 3. Selective coronary angiography. 4. Left ventriculogram. 5. Vein graft angiography. 6. HIDALGO angiography. INDICATION: Angina and coronary artery disease. PROCEDURE IN DETAIL: After informed consent was obtained and after a detailed description of risks, benefits as well as alternative therapies, the patient elected to proceed with angiogram and angioplasty. The right femoral area was prepped and draped in normal sterile fashion. Right femoral artery was cannulated via modified Seldinger technique with placement of 6-Occitan sheath. All catheters exchanged through this sheath. FINDINGS: Left ventriculogram was performed in standard 30-degree CEBALLOS view, reveals good cardiac wall motion throughout all segments. Overall ejection fraction is 60%. SELECTIVE CORONARY ANGIOGRAPHY: 1. Left main has 80% stenosis. 2. This leads into a non-grafted circumflex. 3. Left anterior descending is totally occluded. 4. HIDALGO to the LAD is patent. 5. Vein graft to the LAD diagonal is patent. 6. The right coronary is totally occluded. 7. Vein graft to the right coronary is widely patent. Distal right coronary is widely patent. PTCA STENT OF THE LEFT MAIN: The stent used was a 3.0 x 15 mm Winter. Result was 0% residual stenosis. OVERALL IMPRESSION: Successful percutaneous transluminal coronary angioplasty stent of the left main leading into a large non-grafted circumflex going from 80% initial stenosis to 0% residual. TRANSINT:[id number] Voice Confirmation ID: [id number] DOCUMENT ID: [id number] SANDRA VELEZ MD at 1529 CC: [id number] DICTATION DATE: 07/25/18 1226 UNSCRAMBLER: 07/25/18 1250 DEP CLI 07/25/18 [place] [id number]
== END 2018-07-25 16:30 | disposition home or self-care (01) ==
LOC: D.CATH 08:28
PROVIDERS: ATTEND Internal Medicine Interventional Cardiology
DX: I25.119 Atherosclerotic heart disease of native coronary artery with unspecified angina pectoris (principal); Z95.1 Presence of aortocoronary bypass graft; Z01.812 Encounter for preprocedural laboratory examination
CPT/HCPCS: 93459; C9600

== ENCOUNTER → 2019-03-23 09:19 | Outpatient (CLI) | payer MEDICARE, BC ==
[2018-07-25 08:59] VITALS: BMI 33.3
[~2019-03-23 09:19] MED LIST changes: +MAGNESIUM OXID500 MG PO; +PREDNISONE5 MG PO; +PREVACID15 MG PO
--- NOTE | 2019-03-27 11:41 | ST ---
PATIENT:JANIE ZHOU MEDICAL RECORD: [id number] SEX: M LOCATION:[facility] ORDER #: ADMISSION DATE: 03/23/19 AGE OF PATIENT: 68 REFERRING PHYSICIAN: INTERPRETING PHYSICIAN: SANDRA VELEZ MD DATE OF SERVICE: 03/23/2019 PROCEDURE: Nuclear stress test. INDICATION: Angina, coronary artery disease, hypertension and hyperlipidemia. He was exercised on standard Yadiel protocol for 5 minutes 20 seconds achieving 85% max target heart rate response with 33 mCi of sestamibi injected at peak stress, 11 mCi used previously for rest images. FINDINGS: Gated SPECT reveals preserved ejection fraction at 72% with good wall motion and thickening and brightening throughout all segments. SPECT imaging Cardiolite was used as myocardial fusion agent. There is homogeneous uptake throughout all segments at rest and stress with no evidence of inducible ischemia or previous infarction. OVERALL IMPRESSION: 1. This is a normal nuclear stress test with no evidence of inducible ischemia or previous infarction. 2. Gated SPECT reveals a preserved ejection fraction at 72%. In this patient with ongoing symptomatology, the current scan does not suggest the presence of hemodynamically significant coronary artery disease. Evaluate noncardiac etiology of chest pain. TRANSINT:[id number] Voice Confirmation ID: [id number] DOCUMENT ID: [id number] SANDRA VELEZ MD at 1141 CC: HALLIE SCHWAB [id number] DICTATION DATE: 03/26/19 1155 CREATIVE ARTS THERAPIST: 03/27/19 0033 DEP CLI 03/23/[address] [address]
== END | disposition home or self-care (01) ==
LOC: D.HCCARDIO 09:19
PROVIDERS: ATTEND Internal Medicine Interventional Cardiology
DX: I25.10 Atherosclerotic heart disease of native coronary artery without angina pectoris (principal)

== ENCOUNTER 2020-11-05 07:07 | Day surgery (SDC) | payer MEDICARE, BC ==
[~2020-11-05] VITALS: Ht 175.3 cm; Wt 102.7 kg
--- NOTE | ~2020-11-05 | HEMODYNAMI ---
PATIENT:JANIE ZHOU MEDICAL RECORD: [id number] : 50 LOCATION:[facility] ADMISSION DATE: 11/05/20 Generatedon:19:37 Patient name: JANIE ZHOU Patient #: [id number] SSN: D OB: 1950 Date of study: 11/05/2020 Page: Of Hemodynamic Procedure Report Patient Data Patient Demographics Procedure consent was obtained First Name: JANIE Gender: Male Last Name: ABELARDO : 1950 Patient #: [id number] Age: 70 year(s) Race: Additional ID: [id number] Contact details Address: [address] [place] [address] State: [place] City: [place] Zip code: [address] Past Medical History Allergies Allergen Reaction Date Comments Reported Other allergy 01/25/2018 Plavix, Statins, Lipitor Other allergy 07/25/2018 plavix, Lipitor, Plavix Admission Admission Data Admission Date: 11/05/2020 Admission Time: 7:07 Admit Source: Other Insurance Payor: Medicare Height (in.): 69 BSA: 2.18 (m2) Height (cm.): 175.26 BMI: 33.44 (kg/m2) Weight (lbs.): 226.46 Weight (kg.): 102.72 Lab Results Lab Result Date: 11/05/2020 Lab Result Time: 0:00 Biochemistry Name Units Result Min Max BUN mg/dl 24 --(----)-* 7 18 Creatinine mg/dl 1.3 --(---*)-- 0.6 1.3 eGFR ml/min 58 *-(----)-- 90 120 NONAFRICAN Procedure Procedure Types Cath Procedure Diagnostic Procedure LHC LHC w/Coronaries w/Grafts Sedation Charges Moderate Sedation 10-24 minutes Procedure Description Procedure Date Procedure Date: 11/05/2020 Procedure Start Time: 9:14 Procedure End Time: 9:31 Procedure Staff Name Function Mechelle Counts RT Monitor Buffie Yi RN Nurse Arnel Husain MD Performing Physician Darian Davis RT Scrub Dionicio Calix RN Nurse Procedure Data Cath Procedure Fluoroscopy Diagnostic fluoroscopy Total fluoroscopy Time: 3.8 time: 3.8 min min Diagnostic fluoroscopy Total fluoroscopy dose: 768 dose: 768 mGy mGy Contrast Material Contrast Material Type Amount (ml) Isovue 370 104 Entry Location Entry Primary Successful Side Size Upsize Upsize Entry Closure Succes sful Closure Location (Fr) 1 (Fr) 2 (Fr) Remarks Device Remarks Femoral Right 5 Fr Exoseal artery Estimated blood loss: 5 ml Diagnostic catheters Device Type Used For End Catheter Placement MULTIPACK JL 4.0 5Fr Left Coronary catheter Angiography MULTIPACK 3DRC 5Fr Right Coronary catheter Angiography MULTIPACK 3DRC 5Fr SVG Angiography catheter MULTIPACK 3DRC 5Fr Internal mammary catheter arteriography DIAGNOSTIC AR MOD 5Fr SVG Angiography Catheter ([id number]) DIAGNOSTIC MPA-2 5Fr SVG Angiography catheter ([id number]) MULTIPACK Pigtail 5 Fr LV Angiography catheter Procedure Complications No complications Procedure Medications Medication Administration Route Dosage Oxygen etCO2 Nasal cannula 2 l/min Lidocaine 2% added to field 20 Heparin Flush Bag added to field 2 bags (1000units/500ml NS) 0.9% NaCl I.V. 100 ml/hr Versed I.V. 1 mg Fentanyl I.V. 50 mcg Fentanyl I.V. 50 mcg Versed I.V. 1 mg Fentanyl I.V. 50 mcg Versed I.V. 1 mg Versed I.V. 1 mg Hemodynamics Rest Heart Rate: 67 (bpm) Pressure Samples Time Site Value (mmHg) Purpose Heart Use Rate(bpm) 9:15 AO 135/47(81) Snapshot 64 9:16 AO 126/75(99) Snapshot 66 9:25 LV 125/18,15 Snapshot 67 Gradients Valve Time Site Site Mean SEP/DFP Peak To Heart Use 1 2 (mmHg) (sec/min) Peak Rate (mmHg) (bpm) Aortic 9:26 LV AO 66 Snapshots Pre Cath Intra NCS Post Cath Vital Signs Time Heart Resp SPO2 etCO2 NIBP (mmHg) Rhythm Pain Sedation Rate (ipm) (%) (mmHg) Status Level (bpm) 9:02:21 66 20 93 23.2 158/83(115) NSR 0 (11) 10(A) , No pain 9:06:39 65 13 94 36.7 143/79(111) NSR 0 (11) 10(A) , No pain 9:12:29 65 12 97 38.2 150/78(120) NSR 0 (11) 10(A) , No pain 9:16:49 65 12 96 32.2 137/81(114) NSR 0 (11) 9(A) , No pain 9:21:48 68 16 97 0 Measuring NSR 0 (11) 9(A) , No pain 9:26:17 70 13 93 0 140/64(107) NSR 0 (11) 10(A) , No pain 9:30:55 67 14 95 0 154/91(131) NSR 0 (11) 10(A) , No pain Medications Time Medication Route Dose Verified Delivered Reason Notes Effe ctiveness by by 9:01:24 Oxygen etCO2 2 Arnel Buffie used for Nasal l/min [facility] Yi aircraft cabin cleaner cannula 9:01:30 Lidocaine 2% added 20ml Arnel Arnel for local to vial [facility] anesthetic field MD MAHER 9:01:36 Heparin Flush added 2 Arnel Arnel used for Bag to bags [facility] procedure (1000units/500ml field MD MAHER NS) 9:01:44 0.9% NaCl I.V. 100 Arnel Buffie Per ml/hr [facility] Benedict[facility] Yi RN physician 9:13:11 Fentanyl I.V. 50 Ar[address] Buff[address] for mcg [facility] Benedicto Yi RN sedation 9:13:30 Versed I.V. 1 mg Arnel Buffie for RodrigueBenedicto Yi RN sedation 9:16:28 Fentanyl I.V. [address] Buff[address] for mcg [facility] Benedicto Yi RN sedation 9:16:33 Versed I.V. 1 mg Arnel Buffie for RodrigueBenedicto Yi RN sedation 9:21:38 Fentanyl I.V. [address] Ar[address] Buff[address] for mcg [facility] Benedicto Yi RN sedation 9:21:42 Versed I.V. 1 mg Arnel Anabelie for [facility] Benedict[facility] Yi RN sedation 9:25:44 Versed I.V. 1 mg Arnel Buffie for [facility] Benedict[facility] Yi RN sedation Procedure Log Time Note 8:43:26 Time tracking: Regular hours (M-F 7:00 - 5:00) 8:43:26 Panfilo Yi RN sent for patient. Start room use. 8:43:30 Plan of Care:Hemodynamics will remain stable., Cardiac rhythm will remain stable., Comfort level will be maintained., Respiratory function will remain adequate., Patient/ family verbilizes understanding of procedure., Procedure tolerated without complication., Recovers from procedure without complications.. 8:43:34 ACC Patient presents with Stable Angina CCS Anginal Class 2--Slight limitation of ordinary activity. 8:44:51 Lab Result : eGFR NONAFRICAN 58 ml/min 8:44:51 Lab Result : Creatinine 1.3 mg/dl 8:44:51 Lab Result : BUN 24 mg/dl 8:48:15 Patient Height : 69 inches 8:48:20 Patient Weight : 226.46 lbs 8:48:33 Insurance Payor : Medicare 8:48:34 Admit Source: Other 8:51:14 Patient received from Pre/Post Procedure Room to CCL 2 Alert and oriented. Tansferred to table in Supine position. 8:51:16 Warm blankets applied, and susu hugger turned on for patient comfort. 8:51:17 Signed procedure consent form obtained from patient. 8:51:18 ECG and BP/O2 sat monitors applied to patient. 8:51:18 Correct patient and procedure confirmed by team. 8:51:19 Full Disclosure recording started 8:51:38 H&P Date Dictated: 10/30/2020 Within 30 days and on chart., H&P Addendum completed by physician on day of procedure. (MUST COMPLETE FOR ALL OUTPATIENTS). 8:51:39 Pre-op teaching completed and patient verbalized understanding. 8:51:39 Pre-procedure instructions explained to patient. 8:51:41 Family in patients room. 8:51:42 Patient NPO since Midnight. 8:51:52 Is the patient allergic to Iodine/contrast media? No. 8:51:54 Is patient on blood thinner?No 8:52:01 ACC The patient was administered the following blood thiners within the last 24 hours: None 8:58:31 Patient diabetic? No. 8:58:36 Previous problem with sedation/anesthesia? No ? 8:58:37 Sleep apnea? No 8:58:37 Snore? No 8:58:38 Deviated septum? No 8:58:39 Opens mouth fully? Yes 8:58:40 Sticks out tongue? Yes 8:58:42 Airway obstruction? No ? 8:58:43 Dentures? No ? 8:58:46 Pre procedure: right dorsailis pedis pulse 2+ Normal; easily identifiable; not easily obliterated 8:58:48 Patient pain scale 0/10 ?. 8:58:53 IV patent on arrival in left forearm with 0.9% NaCl at [facility]. 8:58:59 Lab results completed and on chart. 8:59:29 Right groin area was prepped with chlora-prep and draped in sterile fashion 8:59:30 Sharps counted by scrub and verified by R.N. 8:59:30 Alarms reviewed by R. N. 9:01:12 Vital chart was started 9:01:24 Oxygen 2 l/min etCO2 Nasal cannula was administered by Panfilo Yi RN; used for procedure; Verbal order read back and verified. 9:01:30 Lidocaine 2% 20ml vial added to field was administered by Arnel Husain MD; for local anesthetic; Verbal order read back and verified. 9:01:36 Heparin Flush Bag (1000units/500ml NS) 2 bags added to field was administered by Arnel Husain MD; used for procedure; Verbal order read back and verified. 9:01:44 0.9% NaCl 100 ml/hr I.V. was administered by Panfilo Yi RN; Per physician; Verbal order read back and verified. 9:02:39 Risk of Mortality: 0.1 9:02:43 Risk of blood transfusion: 0.1 9:02:46 Risk of JIA: 13.8 9:02:50 Use device set Femoral Dx 9:02:51 ACIST Syringe (75971) opened to sterile field. 9:02:52 Bag Decanter (2002) opened to sterile field. 9:02:53 Medline Cath Pack ([id number]) opened to sterile field. 9:02:54 ACIST Manifold (80433) opened to sterile field. 9:02:54 ACIST Hand Control (12885) opened to sterile field. 9:02:55 DIAGNOSTIC Multipack 5Fr catheter set (OZ0203) opened to sterile field. 9:02:56 SHEATH 5FR [place] (WQL734) opened to sterile field. 9:02:56 EMERALD Guide Wire (009-083) opened to sterile field. 9:03:39 Baseline sample Acquired. 9:03:48 Rhythm: sinus rhythm 9:07:59 Zero performed for pressure channel P1 9:08:36 Zero performed for pressure channel P1 9:09:58 Physician arrived 9:12:56 Final Timeout: patient, procedure, and site verified with staff and physician. All members of the team are in agreement. 9:12:58 Right groin site verified by team. 9:13:01 Fire Safety Assessment: A--An alcohol-based skin anteseptic being used preoperatively., C--Open oxygen or nitrous oxide is being used., D--An ESU, laser, or fiber-optic light is being used. 9:13:04 Physical assessment completed. ASA score P 2 - A patient with mild systemic disease as per Arnel Husain MD. 9:13:08 3a) 45-59 Moderately reduced kidney function. 9:13:10 Maximum allowable contrast dose (3.7 X eGFR X 0.75)163 ml. 9:13:11 Fentanyl 50 mcg I.V. was administered by Panfilo Yi RN; for sedation; Verbal order read back and verified. 9:13:13 Sedation plan: IV Moderate Sedation Medication:Versed, Fentanyl 9:13:17 Procedure started. 9:13:30 Versed 1 mg I.V. was administered by Panfilo Yi RN; for sedation; Verbal order read back and verified. 9:14:00 Local anesthetic to right femoral artery with Lidocaine 2% by Arnel Husain MD.INITIAL ACCESS ONLY 9:14:25 A 5 Fr sheath was inserted into the Right Femoral artery 9:14:42 A MULTIPACK JL 4.0 5Fr catheter was advanced over the wire and used for Left Coronary Angiography. 9:15:35 Catheter removed. 9:15:48 A MULTIPACK 3DRC 5Fr catheter was advanced over the wire and used for Right Coronary Angiography. 9:16:28 Fentanyl 50 mcg I.V. was administered by Panfilo Yi RN; for sedation; Verbal order read back and verified. 9:16:33 Versed 1 mg I.V. was administered by Panfilo Yi RN; for sedation; Verbal order read back and verified. 9:17:12 A MULTIPACK 3DRC 5Fr catheter was advanced over the wire and used for SVG Angiography.t o Diag1 > OM 9:20:01 A MULTIPACK 3DRC 5Fr catheter was advanced over the wire and used for Internal mammary arteriography.to LAD 9:20:13 Catheter removed. 9:20:33 A DIAGNOSTIC AR MOD 5Fr Catheter ([id number]) was advanced over the wire and used for SVG Angiography.to RCA. Catheter removed; unable to cannulate. 9::38 Fentanyl 50 mcg I.V. was administered by Panfilo Yi RN; for sedation; Verbal order read back and verified. 9:21:42 Versed 1 mg I.V. was administered by Panfilo Yi RN; for sedation; Verbal order read back and verified. 9:22:35 Catheter removed. 9:23:15 A DIAGNOSTIC MPA-2 5Fr catheter ([id number]) was advanced over the wire and used for SVG Angiography.to RCA 9:23:59 Catheter removed. 9:25:20 A MULTIPACK Pigtail 5 Fr catheter was advanced over the wire and used for LV Angiography. 9:25:44 Versed 1 mg I.V. was administered by Panfilo Yi RN; for sedation; Verbal order read back and verified. 9:25:51 LV gram done using CEBALLOS 9:25:52 LV hemodynamics recorded. 9:26:09 Injector settings: Ml/sec: 10, Volume: 20, 9:26:10 Catheter removed. 9:26:13 Tegaderm 4 x 4 (1626W) opened to sterile field. 9:26:15 EXOSEAL 5Fr (EX500) opened to sterile field. 9:26:30 Sheath removed intact; hemostasis achieved with Exoseal to the Right Femoral artery. 9::38 Procedure ended.(Physican Out) 9:26:48 Fluoroscopy time 03.80 minutes. 9::52 Fluoroscopy dose: 768 mGy 9:26:52 Flurop Dose total: 768 9:26:56 Dose Area Product 79.3 mGy/cm. 9:27:00 Contrast amount:Isovue 370 104ml. 9:27:01 Maximum allowable dose exceeded? No. 9:27:03 Sharps counted by scrub and verified by R.N. 9:27:05 Insertion/operative site no bleeding no hematoma. 9:27:07 Post-op/insertion site Right Femoral artery dressed using a 4 x 4 and Tegaderm. 9:27:11 Post right femoral artery:stable, clean and dry 9:27:13 Post Procedure Pulses reassessed and unchanged 9:27:20 Post-procedure physical assessment completed. ASA score P 2 - A patient with mild systemic disease as per Arnel Husain MD. 9:27:22 Post procedure rhythm: unchanged. 9:27:24 Estimated blood loss: 5 ml 9:27:26 Patient needs reinforcement of post procedure teaching. 9:27:26 Post procedure instruction explained to patient.Patient verbalizes understanding. 9:28:02 Procedure type changed to Cath procedure, Diagnostic procedure, LHC, LHC w/Coronaries w/Grafts, Sedation Charges, Moderate Sedation 10-24 minutes 9:28:08 Procedure Complication : No complications 9:28:11 See physician's report for complete and final results. 9:28:11 Operative report dictated upon procedure completion. 9:29:09 Procedure and supply charges have been captured, reviewed, submitted and are correct. 9:31:43 Vital chart was stopped 9:31:46 Report given to Pre/Post Procedure Room. 9:31:48 Patient transfered to Pre/Post Procedure Room with Stretcher. 9:31:57 Full Disclosure recording stopped 9:31:57 Procedure ended. 9:36:52 Mechelle Counts RT(R) was relieved by Mechelle Counts RT(R) as monitoring person Device Usage Item Name Manufacture Quantity Catalog Hospital Part Current Minimal L ot# / Number Charge Number Stock Stock Serial# Code ACIST Acist 1 59964 695085 890694 [id number] 20 Syringe Medical (46959) Systems Inc Bag Microtek 1 269972 53622 167325 5 Decanter Medical Inc. () Medline Medline 1 [id number] 146985 62676 824534 5 Cath Pack ([id number]) ACIST Hand Acist 1 31034 918124 900989 138594 5 Control Medical (85560) Systems Inc ACIST Acist 1 10424 994813 313762 935629 5 Manifold Medical (72498) Systems Inc DIAGNOSTIC Cardinal 1 XR5746 416496 65004 116464 30 Multipack Health 5Fr catheter set (OM3969) EMERALD Cardinal 1 502-455 770431 097189 393347 5 Guide Wire Health (502-343) SHEATH 5FR Terumo 1 QNF324 284207 237061 448682 5 [place] (JSC598) MULTIPACK Cardinal 1 825897 5 JL 4.0 5Fr Health catheter MULTIPACK Cardinal 1 814036 5 3DRC 5Fr Health catheter DIAGNOSTIC Cardinal 1 [id number] 504512 463154 176254 15 AR MOD 5Fr Health Catheter (706726T) DIAGNOSTIC Cardinal 1 [id number] 775369 817272 745707 5 MPA-2 5Fr Health catheter (292215Z) MULTIPACK Cardinal 1 215832 5 Pigtail 5 Health Fr catheter Tegaderm 4 3M 1 1626W 828614 418761 033261 5 x 4 (1626W) EXOSEAL 5Fr Cardinal 1 EX500 305805 001851 908005 10 (EX500) Health Signature Audit [employer] Stage Time Signature Unsigned Intra-Procedure 11/05/2020 Panfilo Min Counts 9:32:19 AM RN; Mechelle RT(R) 11/05/2020 Counts RT(R); 9:36:34 AM Arnel Husain MD Intra-Procedure 11/05/2020 Mechelle 9:36:42 AM Counts RT(R) Intra-Procedure 11/05/2020 Arnel Haines 9:37:07 AM Benedicto MAHER Signatures Monitor : Mechelle Signature : Counts RT Date : Time : Nurse : Panfilo Yi RN Signature : Date : Time : Performing Physician : Signature : Arnel Husain MD Date : Time : Nurse : Dionicio Calix RN Signature : Date : Time : [address] [place] [address]
[2020-11-05] MEDS ORDERED: NEXIUM20 MG PO (07:50)
[2020-11-05] MEDS ORDERED: CLARITIN 10 MG10 MG PO (07:51)
[2020-11-05 08:12] VITALS: BP 167/100; Ht 175.3 cm; Wt 102.7 kg
[2020-11-05 08:28] LABS: BASOPHILS 0.6 % (0-2); EOSINOPHILS 1.4 % (0-7); HEMATOCRIT 49.5 % (42.0-54.0); HEMOGLOBIN 16.7 g/dL (13.5-17.5); MCH 30.4 pg (26.0-34.0); MCHC 33.8 g/dL (31.0-37.0); MCV 89.8 fL (80.0-100.0); MEAN PLATELET VOLUME 7.4 fL (7.4-10.4); MONOCYTES 10.4 % (2-11); NEUTROPHILS 64.6 % (40-80); PLATELET COUNT 315 10x3/uL (130-400); RBC 5.51 10x6/uL (4.20-6.10); RDW 13.4 % (11.5-14.5); WBC 7.7 10x3/uL (4.8-10.8)
[2020-11-05 08:40] LABS: ANION GAP 13.6 mmol/L (8-16); CALCIUM 9.2 mg/dL (8.5-10.1); CARBON DIOXIDE 27.8 mmol/L (21.0-32.0); CHOL - HDL RATIO 4.8 ratio (2.3-4.9); CREATININE - SERUM 1.3 mg/dL (0.6-1.3); LDL-HDL RATIO 3.3 ratio (1.5-3.5); POTASSIUM - SERUM 4.4 mmol/L (3.5-5.1)
--- NOTE | 2020-11-05 09:41 | NUR ---
PT REC'D TO CATH RECOVERY ROOM 10 VIA STRETCHER. MONITORS ESTAB. AT BS. SEE BOARDER STEAM FLOWSHEETS. ALARMS ON AND C/L IN REACH.
--- NOTE | 2020-11-05 09:55 | NUR ---
R GROIN SITE SOFT, NO S/S BLEEDING OR HEMATOMA. PEDAL PULSES EASILY PALP. VSS. PT RESTING QUIETLY, DENIES PAIN OR NEEDS. ALARMS ON AND C/L IN REACH.
--- NOTE | 2020-11-05 10:25 | NUR ---
VSS. R GROIN SITE SOFT, NO S/S BLEEDING OR HEMATOMA. PULSES PALP. PT DENIES PAIN OR NEEDS. ALARMS ON AND C/L IN REACH.
--- NOTE | 2020-11-05 10:51 | NUR ---
R GROIN SITE SOFT, C/D/I, PULSES PALP. HOB ELEVATED. SANDWICH TRAY AND SPRITE PROVIDED. ALARMS ON AND C/L IN REACH.
--- NOTE | 2020-11-05 11:20 | NUR ---
R GROIN SITE SOFT, NO S/S BLEEDING OR HEMATOMA. PULSES PALP. TOLERATED DIET. VSS.
--- NOTE | 2020-11-05 11:25 | NUR ---
PIV D/C'D INTACT, DSG APPLIED.
--- NOTE | 2020-11-05 11:32 | NUR ---
ALL DISCHARE INSTRUCTIONS REVIEWED WITH PT AND HIS , INCLUDING RESTRICTIONS, MEDS AND F/U APPT. BOTH VERBALIZE UNDERSTANDING. PT ALLOWED UP TO GET DRESSED AND GO TO BR INDEPENDENTLY.
--- NOTE | 2020-11-05 11:44 | NUR ---
PT D/C'D VIA WC TO PRIVATE VEHICLE WITH ALL PAPERWORK AND BELONGINGS
--- NOTE | 2020-11-07 09:24 | OP ---
PATIENT NAME: JANIE ZHOU MEDICAL RECORD: [id number] :50 LOCATION:D.CAT ADMISSION DATE: SURGEON: YOLANDA DODGE MD DATE OF OPERATION: 11/05/2020 PROCEDURE: Left heart catheterization, selective coronary angiography plus HIDALGO plus saphenous graft to the diagonal and circumflex plus saphenous vein graft to the right, right femoral artery approach. CATHETERS: A 5-Estonian sheath, 5/4 left and right Soy, 5/4 pig. The procedure was well tolerated. The patient was returned to the [facility]. Sheath removed. ExoSeal device was placed. FINDINGS: Left ventriculography in 30-degree CEBALLOS view: Normal wall motion, normal systolic function. CORONARY ANATOMY: Left main: Left main is free of disease. LAD: Fills for a short period of time and totally occluded. Circumflex: Large circumflex, codominant, previously placed stent is widely patent. No evidence of restenosis. No progression of [place] disease. Right coronary artery: Totally occluded in its mid portion. BYPASS GRAFTS: HIDALGO to the LAD is widely patent throughout its course with no evidence of post-anastomotic stenosis. SAPHENOUS VEIN GRAFT: 1. This is a skip graft to the diagonal and OM and this is widely patent throughout its course without evidence post-anastomotic stenosis. 2. Saphenous vein graft to the right, again widely patent with no evidence of post-anastomotic stenosis. IMPRESSION: Normal left ventricular systolic function. Widely patent bypass grafts. Continue risk factor modification and medical management. TRANSINT:[id number] Voice Confirmation ID: [id number] DOCUMENT ID: [id number] YOLANDA DODGE MD at 0924 CC: [id number] DICTATION DATE: 11/05/20 0938 HUMAN RESOURCES LEADER: 11/05/20 1208 [facility] 11/05/20 [place] [id number]
--- NOTE | 2020-11-07 09:25 | EC ---
PATIENT:JANIE ZHOU DATE OF SERVICE: 11/05/20 SEX: M MEDICAL RECORD: [id number] DATE OF : 50 LOCATION:D.CAT AGE OF PATIENT: 70 ADMISSION DATE: 11/05/20 REFERRING PHYSICIAN: INTERPRETING PHYSICIAN: YOLANDA DODGE MD ECHOCARDIOGRAM REPORT ECHO CHARGES 4 ECHO COMPLETE Date: 11/05/20 CLINICAL DIAGNOSIS: CAD/ANGINA/ ASSESS EF AND VALVES HX OF CAD/CABG ECHOCARDIOGRAPHIC MEASUREMENTS (adult normal given) AC root (d.<3.7cm) 3.5 cm LV Septum d (<1.2 cm> 1.2 cm Valve Excursion 1.8 cm LV Septum (systole) 1.5 cm Left Atria (s.<4.0cm> 4.3 cm LVPW d(<1.2cm) 1.4 cm RV (d.<2.3cm) 3.5 cm LVPW (sytole) 1.6 cm LV diastole(<5.6CM) 5.6 cm MV E-F(>70mm/sec) cm LV systole 3.6 cm LVOT Diameter 1.8 cm MV exc.(>10mm) 1.5 cm Est.ejection fraction (50-75%) % DOPPLER: LVIT cm/sec A 65.0 cm/sec E 83.0 cm/sec LA cm/sec RVSP 45 mmHg LVOT 88 cm/sec AOP1/2T m/s Asc. Ao 94 cm/sec RVOT 65 cm/sec RA cm/sec PA 81 cm/sec AV Gradient Peak 3.55 mmHg AV Mean 1.86 mmHg AV Area 2.8 cm MV Gradient Peak 3.67 mmHg MV Mean 1.76 mmHg MV Area cm COMMENTS: Analytics Intern: 2 AYSHA JEFFERSON Operational Risk Manager: 3 Dr. Valles TAPE# PACS Pericardial Effusion N DATE OF SERVICE: Adequate 2D, color flow imaging, spectral Doppler, and M-Mode. FINDINGS: Borderline LVH. LV internal dimension is normal. Wall motion is normal. EF is greater than or equal to 55%. Aortic valve is sclerotic. No evidence of stenosis by Doppler interrogation. Left atrium is mildly dilated at 4.3 cm. Mitral valve shows no prolapse. Trace MR. Right side is grossly normal. Mild TR. ECHOCARDIOGRAM REPORT [id number] JANIE ZHOU TRANSINT:[id number] Voice Confirmation ID: [id number] DOCUMENT ID: [id number] YOLANDA DODGE MD at 0925 CC: [id number] DICTATION DATE: 11/06/201712 WINDOW GLASS CUTTER OFF: 11/06/20 181 [facility] 11/05/20 [place] [id number] [place] [id number]
== END 2020-11-05 11:44 | disposition home or self-care (01) ==
LOC: D.CATH 07:07 → D.HCCECHO 08:30 → D.CATH 08:30 → EDSTATUS 08:30 → D.CATH 11:44
PROVIDERS: ATTEND Internal Medicine Interventional Cardiology
DX: I25.119 Atherosclerotic heart disease of native coronary artery with unspecified angina pectoris (principal); I10 Essential (primary) hypertension; E78.5 Hyperlipidemia, unspecified; R07.9 Chest pain, unspecified; R94.39 Abnormal result of other cardiovascular function study; I36.9 Nonrheumatic tricuspid valve disorder, unspecified

== ENCOUNTER → 2020-11-21 09:02 | Outpatient (CLI) | payer MEDICARE, BC ==
[2020-11-05 08:12] VITALS: BMI 33.4
[~2020-11-21 09:02] MED LIST changes: +CLARITIN 10 MG10 MG PO; +NEXIUM20 MG PO
== END | disposition home or self-care (01) ==
LOC: D.CT 11-20 15:00
PROVIDERS: ATTEND Family Medicine
DX: R79.1 Abnormal coagulation profile (principal); R06.00 Dyspnea, unspecified